=== PATIENT | female | born 1970 | race Caucasian/White ===

== ENCOUNTER 2018-04-25 15:23 | Outpatient (CLI) | payer OTHER ==
[2018-04-25] MEDS ORDERED: PROP20TA PO (15:57)
[2018-04-25] MEDS ORDERED: ALPR0.254 PO (15:57)
[2018-04-25] MEDS ORDERED: LACT1CAP35 PO (15:57)
[2018-04-25 16:04] LABS: BASOPHILS # (AUTO) 0.02 x10^3/uL (0-0.1); BASOPHILS % (AUTO) 0 % (0-1); EOSINOPHILS # (AUTO) 0.11 x10^3/uL (0-0.4); EOSINOPHILS % (AUTO) 2 % (1-7); LYMPHOCYTES # (AUTO) 1.28 x10^3/uL (1-3.4); LYMPHOCYTES % (AUTO) 18 % (22-44); MD NO; MEAN CORPUSCULAR HEMOGLOBIN 33.5 pg (27.0-34.8); MEAN CORPUSCULAR VOLUME 98.4 fL (80-100); MONOCYTES # (AUTO) 0.48 x10^3/uL (0.2-0.8); MONOCYTES % (AUTO) 7 % (2-9); NEUTROPHILS # (AUTO) 5.15 x10^3/uL (1.8-6.8); NEUTROPHILS % (AUTO) 73 % (42-75); PLATELET COUNT 257 x10^3/uL (130-400); RED BLOOD COUNT 3.82 x10^6/uL (3.82-5.3); RED CELL DISTRIBUTION WIDTH 13.6 % (9.6-15.2)
[2018-04-25 16:05] LABS: MICROSCOPIC AUTO
[2018-04-25 16:12] LABS: CULTURE INDICATED? NO
[2018-04-25 16:17] LABS: ANION GAP 6 mmol/L (5-15); CALCIUM 9.4 mg/dL (8.5-10.1); CHLORIDE 104 mmol/L (98-107); CREATININE 0.96 mg/dL (0.55-1.02)
== END 2018-04-25 23:59 | disposition home or self-care (01) ==
LOC: STAR 15:23
PROVIDERS: ATTEND Obstetrics & Gynecology
DX: Z01.818 Encounter for other preprocedural examination (principal); N80.1 Endometriosis of ovary
CPT/HCPCS: 36415; 80048; 81001; 82670; 83001; 85025; 86304

== ENCOUNTER 2018-05-02 09:35 | Day surgery (SDC) | payer OTHER ==
[~2018-05-02] VITALS: Ht 172.7 cm; Wt 63.7 kg
[~2018-05-02 09:35] MED LIST: ALPR0.254 PO; BUPIVACAINE/PF 0.25% ONE; EPINEPHRINE 1 MG/ML, 1ML ONE; FLUORESCEIN SODIUM 500 MG/5 ML ONE; LACT1CAP35 PO; PROP20TA PO
[2018-05-02 09:55] VITALS: BP 146/100
[2018-05-02] MEDS ORDERED: LACTATED RINGERS 1,000 ML IV SCH (09:58)
[2018-05-02] MEDS ORDERED: FENTANYL PF 250 MCG/5ML ONE (10:12)
[2018-05-02] MEDS ORDERED: MIDAZOLAM 1 MG/ML, 2ML ONE (10:12)
[2018-05-02] MEDS ORDERED: LIDOCAINE-MPF 2% ,5ML ONE (10:13)
[2018-05-02] MEDS ORDERED: ROCURONIUM 10MG/ML,5ML ONE (10:13)
[2018-05-02] MEDS ORDERED: NEOSTIGMINE 1 MG/ML, 10ML ONE (10:13)
[2018-05-02] MEDS ORDERED: PROPOFOL 10 MG/ML, 20ML ONE (10:13)
[2018-05-02] MEDS ORDERED: SCOPOLAMINE PATCH, 1.5MG PATCH.TD72 TD ONE ×2 (10:42→11:01)
[2018-05-02] MEDS ORDERED: ACETAMINOPHEN 500 MG TABLET PO ONE (11:00)
[2018-05-02] MEDS ORDERED: GABAPENTIN 300 MG CAPSULE PO ONE (11:00)
[2018-05-02] MEDS ORDERED: FENTANYL PF 100 MCG/2ML IV PRN (12:00)
[2018-05-02] MEDS ORDERED: OXYcodone 5 MG/5 ML ORAL.SOL UDC PO PRN (12:00)
[2018-05-02] MEDS ORDERED: hydrALAzine 20 MG/ML, 1ML IV PRN (12:00)
[2018-05-02] MEDS ORDERED: HALOPERIDOL 5 MG/ML IV PRN (12:00)
[2018-05-02] MEDS ORDERED: PROMETHAZINE 25 MG/ML, 1ML IV PRN (12:00)
[2018-05-02] MEDS ORDERED: LORazepam 2 MG/ML, 1ML IVPush PRN (12:00)
[2018-05-02] MEDS ORDERED: MEPERIDINE/PF 25MG/0.5ML IVPush PRN (12:00)
[2018-05-02] MEDS ORDERED: ALBUTEROL SULFATE 2.5 MG/3 ML NPPB PRN (12:00)
[2018-05-02] MEDS ORDERED: HYDROmorphone 2 MG/ML, 1ML IVPush PRN (12:00)
[2018-05-02] MEDS ORDERED: OXYcodone 5 MG/5 ML ORAL.SOL UDC ONE (12:45)
[2018-05-02] MEDS ORDERED: FENTANYL PF 100 MCG/2ML ONE (13:19)
[2018-05-02] MEDS ORDERED: ONDANSETRON 2MG/ML, 2ML ONE (14:23)
== END 2018-05-02 16:10 | disposition home or self-care (01) ==
LOC: OUT 09:35
PROVIDERS: ATTEND Obstetrics & Gynecology
DX: N80.1 Endometriosis of ovary (principal); J45.909 Unspecified asthma, uncomplicated; F41.9 Anxiety disorder, unspecified; E03.9 Hypothyroidism, unspecified; Z88.0 Allergy status to penicillin; Z98.890 Other specified postprocedural states
CPT/HCPCS: 58661; 88302; 88305; J0171; J2250; J2405; J2704; J2710; J3010; J3490; J7120

== ENCOUNTER 2019-11-27 15:43 | Outpatient (CLI) | payer OTHER ==
[~2019-11-27 15:43] MED LIST changes: -BUPIVACAINE/PF 0.25% ONE; -EPINEPHRINE 1 MG/ML, 1ML ONE; -FLUORESCEIN SODIUM 500 MG/5 ML ONE
== END 2019-11-27 23:59 | disposition home or self-care (01) ==
LOC: CARD 15:43
PROVIDERS: ATTEND Psychiatry & Neurology Neurology
DX: G24.3 Spasmodic torticollis (principal); G25.0 Essential tremor; H51.11 Convergence insufficiency
CPT/HCPCS: 95867; 95868